=== PATIENT | female | born 1945 | race Two or more races ===

== ENCOUNTER 2021-08-31 19:28 | Inpatient (IN) | payer OTHER ==
[~2021-08-31] VITALS: Ht 162.6 cm; Wt 44.0 kg
[2021-08-31] MEDS ORDERED: LEXAPRO5 MG (19:35)
[2021-08-31] MEDS ORDERED: COZAAR100 MG (19:35)
[2021-08-31] MEDS ORDERED: RISPERIDONE O0.25 MG (19:35)
[2021-08-31] MEDS ORDERED: ATIVAN0.5 M1 (19:35)
== END 2021-09-04 19:29 | disposition home or self-care (01) | DRG 641 ==
LOC: ER 19:28 → EDBD 20:18 → ER 20:18 → SEC-K 09-01 09:51 → MEDJ 09-01 14:54
PROVIDERS: ADMIT Internal Medicine; ATTEND Internal Medicine
DX: E86.0 Dehydration (principal); G30.9 Alzheimer's disease, unspecified; F02.80 Dementia in other diseases classified elsewhere, unspecified severity, without behavioral disturbance, psychotic disturbance, mood disturbance, and anxiety
CPT/HCPCS: 70552